=== PATIENT | female | born 1995 | race Caucasian/White ===

== ENCOUNTER 2016-11-14 12:23 | Emergency (ER) | payer OTHER ==
--- NOTE | 2016-11-14 13:09 | ED NURSING NOTES ---
Clinical Report - Nurses [facility] [address] [place] [address] 11/14/2016 12:24 Patient: LESLIE MAGAÑA TRIAGE Triage time 12:41 Nov 14 2016. Acuity: LEVEL 4. --12:45 Radha Marie R.N. 12:41 11/14/16. BP: 115/69. HR: 98. RR: 15. O2 saturation: 100%. Temp: 97.9 F. Pain level now: 03/27. --12:45 Radha Marie R.N. Weight: 56.6 kg stated. Height/Length: 65 inches Per Patient. BMI: 20.8. --12:45 Radha Marie R.N. Medications None. --12:42 Radha Marie R.N. Medication/allergy information source: the patient. --12:45 Radha Marie R.N. Allergies None. --12:42 Radha Marie R.N. History Arrived by private vehicle. Historian: patient. Accompanied by family. Reported as (pt reports upper right dental pain x 3 days). Onset. (3 days ago). 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 PAST MEDICAL HX: Immunizations: up-to-date. Last normal menstrual period- reports "I don't have very many of those". SOCIAL HX: Smoker- current status unknown (cigarette). History of drug use: marijuana. No alcohol use. No infectious disease exposure. ABUSE ASSESSMENT: No report of abuse. SELF HARM ASSESSMENT: A self harm assessment was performed. The patient answered "no" to the question "Do you have thoughts of harming or killing yourself?". FALL RISK ASSESSMENT: Fall risk assessment completed. No fall risk identified. NUTRITIONAL RISK ASSESSMENT: The nutritional risk assessment revealed no deficiencies. FUNCTIONAL ASSESSMENT: Functional assessment: no impairments noted. LEARNING NEEDS ASSESSMENT: The learning needs assessment revealed no barriers. SKIN INTEGRITY ASSESSMENT: Skin integrity risk assessment completed. No skin integrity risk identified. --12:45 Radha Marie R.N. PROBLEMS: Dental Pain. Substance Abuse. Skin Rash. Dysfunctional Uterine Bleeding. Iron deficiency. Immunizations. LNMP - Last Normal Menstrual Period. --12:43 Radha Marie R.N. [Resolved]. Discomfort of [Resolved]. --12:43 Radha Marie R.N. Eczema [RuleOut]. --12:43 Radha Marie R.N. ADDITIONAL SURGERIES: no known surgeries. Interventions ID band on patient. --12:45 Radha Marie R.N. PHYSICAL ASSESSMENT Ambulatory to room. GENERAL / NEURO / PSYCH: Alert. The patient does not appear to be in acute distress. Oriented X 4. RESPIRATORY: Respirations not labored. CVS: Capillary refill less than 2 seconds. SKIN: Skin is warm and dry. Skin rash present. --12:46 Radha Marie R.N. SKIN: Skin rash present- pt has scabs/sores scattered on face, has known dental caries "my insurance doesn't cover many dentists" pt denies drug use "I smoke weed once in a while". --12:48 Radha Marie R.N. NURSING PROGRESS NOTES 12:29. ( this RN went out to call pt to a room for triage and tx, no answer, pts "friend" came up and said she is in the bathroom , I waited 5 minutes and pt remained in the bathroom- speaking with the "friend" through the closed door, pts friend reports "she doesn't like the doctors or going to the hospital" supercharger repair supervisor notified.). --12:36 Radha Marie R.N. Head of bed elevated. Patient identifiers checked. Call light placed in reach. Side rails up x 1. Bed placed in lowest position. Brakes of bed on. Patient ready for evaluation- chart flagged. Patient waiting for evaluation. --12:46 Radha Marie R.N. ( doing dental block). --12:53 Page-Kuchan, Karyol, R.N. DISPOSITION / DISCHARGE No learning barriers present. Discharge instructions provided and reviewed with the patient. Reviewed medication(s) side effects and course information. Prescription(s) given to the patient. Patient verbalized understanding. Written instructions provided in Macedonian. The patient was discharged by the physician. She was discharged home and accompanied by soil science teacher. She left the Emergency Department ambulatory. --13:22 Radha Marie R.N. 13:20 11/14/16. BP: deferred. HR: deferred. RR: deferred. O2 saturation: deferred. Temp: deferred. Pain level now: 0/10. --13:22 Radha Marie R.N. Locked/Released at 11/14/2016 20:28 by Radha Marie R.N.
--- NOTE | 2016-11-14 13:09 | ED CLINICAL REPORT ---
Clinical Report - Physicians/Mid Levels [facility] [address] [place] [address] 11/14/2016 12:24 Patient: LESLIE MAGAÑA Time Seen: 12:30; initial patient contact. Arrived- By private vehicle. Historian- patient. HISTORY OF PRESENT ILLNESS Chief Complaint: DENTAL PAIN. This started about 3 days ago and is still present and worsening. It was gradual in onset and has been constant. Pain described as moderate. The patient has had toothache, jaw pain, nasal congestion and a nasal discharge. No ear pain, swollen jaw or face or facial pain. Similar symptoms previously: Several times. Recent medical care: Not recently seen/assessed. REVIEW OF SYSTEMS No fever or difficulty breathing. She has had a mild skin rash located on the face. All systems otherwise negative, except as recorded above. PAST HISTORY Dental Pain. Substance Abuse. Skin Rash. Dysfunctional Uterine Bleeding. Iron deficiency. SOCIAL HISTORY Current every day smoker. History of drug use: marijuana. No alcohol use. ADDITIONAL NOTES The nursing notes have been reviewed. PHYSICAL EXAM Vital Signs: 11/14/2016 12:41 BP: 115/69. HR: 98. RR: 15. O2 saturation: 100%. Temp: 97.9 F. Pain level now: 10/10. Have been reviewed as normal. Appearance: Alert. No acute distress. Head: Normal external inspection. ENT: Moderate, localized dental decay (upper right first premolar and second premolar). Moderate dental tenderness with gingival tenderness and swelling (upper right first premolar and second premolar). No trismus present. The mucous membranes are not dry. Neck: Trachea midline. No adenopathy. Skin: Mild, excoriated skin rash located on the face. Neuro: Oriented X 3. PROGRESS AND PROCEDURES Dental Nerve Block: Time: 13:17. Per protocol, time-out completed immediately before the procedure. Inferior Alveolar Block. Procedure performed on the right side. Landmarks were identified. Topical anesthetic applied. Total volume of 3 mL 2% Lidocaine and 0.5% Marcaine infiltrated using a 25-gauge needle. No complications encountered. Excellent anesthesia achieved. Disposition: Discharged home in good and improved condition. Condition: good. CLINICAL IMPRESSION Dental caries (extensive decay) Acute maxillary sinusitis INSTRUCTIONS Prescription Medications: Hydrocodone/APAP 5mg / 325mg: take 1 orally as needed for pain. Dispense fifteen (15). No refill. Amoxicillin 500 mg capsules: take 1 orally every 8 hours for 7 days Mupirocin 2% ointment: apply small amount to affected area three times daily until symptoms better. Dispense twenty-two (22) grams. No refills. Flonase nasal spray: 2 sprays to each nostril daily. Dispense one (1) unit. No refills. Substitution is permissible Follow-up: Screening today revealed the patient's blood pressure to be in the normal range. Follow-up with: [facility], , , , , , Follow up in about two days. Call for an appointment. (Electronically signed by King Alcazar Dr. 11/14/2016 13:18)
--- NOTE | 2016-11-14 13:09 | ED CLINICAL REPORT ---
Clinical Report - Physicians/Mid Levels [facility] [address] [place] [address] 11/14/2016 12:24 Patient: LESLIE MAGAÑA Time Seen: 12:30; initial patient contact. Arrived- By private vehicle. Historian- patient. HISTORY OF PRESENT ILLNESS Chief Complaint: DENTAL PAIN. This started about 3 days ago and is still present and worsening. It was gradual in onset and has been constant. Pain described as moderate. The patient has had toothache, jaw pain, nasal congestion and a nasal discharge. No ear pain, swollen jaw or face or facial pain. Similar symptoms previously: Several times. Recent medical care: Not recently seen/assessed. REVIEW OF SYSTEMS No fever or difficulty breathing. She has had a mild skin rash located on the face. All systems otherwise negative, except as recorded above. PAST HISTORY Dental Pain. Substance Abuse. Skin Rash. Dysfunctional Uterine Bleeding. Iron deficiency. SOCIAL HISTORY Current every day smoker. History of drug use: marijuana. No alcohol use. ADDITIONAL NOTES The nursing notes have been reviewed. PHYSICAL EXAM Vital Signs: 11/14/2016 12:41 BP: 115/69. HR: 98. RR: 15. O2 saturation: 100%. Temp: 97.9 F. Pain level now: 10/10. Have been reviewed as normal. Appearance: Alert. No acute distress. Head: Normal external inspection. ENT: Moderate, localized dental decay (upper right first premolar and second premolar). Moderate dental tenderness with gingival tenderness and swelling (upper right first premolar and second premolar). No trismus present. The mucous membranes are not dry. Neck: Trachea midline. No adenopathy. Skin: Mild, excoriated skin rash located on the face. Neuro: Oriented X 3. PROGRESS AND PROCEDURES Dental Nerve Block: Time: 13:17. Per protocol, time-out completed immediately before the procedure. Inferior Alveolar Block. Procedure performed on the right side. Landmarks were identified. Topical anesthetic applied. Total volume of 3 mL 2% Lidocaine and 0.5% Marcaine infiltrated using a 25-gauge needle. No complications encountered. Excellent anesthesia achieved. Disposition: Discharged home in good and improved condition. Condition: good. CLINICAL IMPRESSION Dental caries (extensive decay) Acute maxillary sinusitis INSTRUCTIONS Prescription Medications: Hydrocodone/APAP 5mg / 325mg: take 1 orally as needed for pain. Dispense fifteen (15). No refill. Amoxicillin 500 mg capsules: take 1 orally every 8 hours for 7 days Mupirocin 2% ointment: apply small amount to affected area three times daily until symptoms better. Dispense twenty-two (22) grams. No refills. Flonase nasal spray: 2 sprays to each nostril daily. Dispense one (1) unit. No refills. Substitution is permissible Follow-up: Screening today revealed the patient's blood pressure to be in the normal range. Follow-up with: [facility], , , , , , Follow up in about two days. Call for an appointment. (Electronically signed by King Alcazar Dr. 11/14/2016 13:18)
--- NOTE | 2016-11-14 13:09 | ED NURSING NOTES ---
Clinical Report - Nurses [facility] [address] [place] [address] 11/14/2016 12:24 Patient: LESLIE MAGAÑA TRIAGE Triage time 12:41 Nov 14 2016. Acuity: LEVEL 4. --12:45 Radha Marie R.N. 12:41 11/14/16. BP: 115/69. HR: 98. RR: 15. O2 saturation: 100%. Temp: 97.9 F. Pain level now: 03/27. --12:45 Radha Marie R.N. Weight: 56.6 kg stated. Height/Length: 65 inches Per Patient. BMI: 20.8. --12:45 Radha Marie R.N. Medications None. --12:42 Radha Marie R.N. Medication/allergy information source: the patient. --12:45 Radha Marie R.N. Allergies None. --12:42 Radha Marie R.N. History Arrived by private vehicle. Historian: patient. Accompanied by family. Reported as (pt reports upper right dental pain x 3 days). Onset. (3 days ago). 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 PAST MEDICAL HX: Immunizations: up-to-date. Last normal menstrual period- reports "I don't have very many of those". SOCIAL HX: Smoker- current status unknown (cigarette). History of drug use: marijuana. No alcohol use. No infectious disease exposure. ABUSE ASSESSMENT: No report of abuse. SELF HARM ASSESSMENT: A self harm assessment was performed. The patient answered "no" to the question "Do you have thoughts of harming or killing yourself?". FALL RISK ASSESSMENT: Fall risk assessment completed. No fall risk identified. NUTRITIONAL RISK ASSESSMENT: The nutritional risk assessment revealed no deficiencies. FUNCTIONAL ASSESSMENT: Functional assessment: no impairments noted. LEARNING NEEDS ASSESSMENT: The learning needs assessment revealed no barriers. SKIN INTEGRITY ASSESSMENT: Skin integrity risk assessment completed. No skin integrity risk identified. --12:45 Radha Marie R.N. PROBLEMS: Dental Pain. Substance Abuse. Skin Rash. Dysfunctional Uterine Bleeding. Iron deficiency. Immunizations. LNMP - Last Normal Menstrual Period. --12:43 Radha Marie R.N. [Resolved]. Discomfort of [Resolved]. --12:43 Radha Marie R.N. Eczema [RuleOut]. --12:43 Radha Marie R.N. ADDITIONAL SURGERIES: no known surgeries. Interventions ID band on patient. --12:45 Radha Marie R.N. PHYSICAL ASSESSMENT Ambulatory to room. GENERAL / NEURO / PSYCH: Alert. The patient does not appear to be in acute distress. Oriented X 4. RESPIRATORY: Respirations not labored. CVS: Capillary refill less than 2 seconds. SKIN: Skin is warm and dry. Skin rash present. --12:46 Radha Marie R.N. SKIN: Skin rash present- pt has scabs/sores scattered on face, has known dental caries "my insurance doesn't cover many dentists" pt denies drug use "I smoke weed once in a while". --12:48 Radha Marie R.N. NURSING PROGRESS NOTES 12:29. ( this RN went out to call pt to a room for triage and tx, no answer, pts "friend" came up and said she is in the bathroom , I waited 5 minutes and pt remained in the bathroom- speaking with the "friend" through the closed door, pts friend reports "she doesn't like the doctors or going to the hospital" monorail charger operator notified.). --12:36 Radha Marie R.N. Head of bed elevated. Patient identifiers checked. Call light placed in reach. Side rails up x 1. Bed placed in lowest position. Brakes of bed on. Patient ready for evaluation- chart flagged. Patient waiting for evaluation. --12:46 Radha Marie R.N. ( doing dental block). --12:53 Page-Kuchan, Karyol, R.N. DISPOSITION / DISCHARGE No learning barriers present. Discharge instructions provided and reviewed with the patient. Reviewed medication(s) side effects and course information. Prescription(s) given to the patient. Patient verbalized understanding. Written instructions provided in Chinese. The patient was discharged by the physician. She was discharged home and accompanied by flooring installer. She left the Emergency Department ambulatory. --13:22 Radha Marie R.N. 13:20 11/14/16. BP: deferred. HR: deferred. RR: deferred. O2 saturation: deferred. Temp: deferred. Pain level now: 0/10. --13:22 Radha Marie R.N. Locked/Released at 11/14/2016 20:28 by Radha Marie R.N.
--- NOTE | 2016-11-14 20:28 | ED DISCHARGE INSTRUCTIONS ---
Patient: LESLIE MAGAÑA General Instructions [facility] VisitID: [id number] [place] [address] 21y, F Registration Date/Time: 11/14/2016 Dental caries (extensive decay) Acute maxillary sinusitis INSTRUCTIONS Prescription Medications: Hydrocodone/APAP 5mg / 325mg: take 1 orally as needed for pain. Dispense fifteen (15). No refill. Amoxicillin 500 mg capsules: take 1 orally every 8 hours for 7 days Mupirocin 2% ointment: apply small amount to affected area three times daily until symptoms better. Dispense twenty-two (22) grams. No refills. Flonase nasal spray: 2 sprays to each nostril daily. Dispense one (1) unit. No refills. Substitution is permissible Follow-up: Screening today revealed the patient's blood pressure to be in the normal range. Follow-up with: [facility], , , , , , Follow up in about two days. Call for an appointment. ADDITIONAL INFORMATION Sinusitis [No Abx Tx] The sinuses are air-filled spaces within the bones of the face. They connect to the inside of the nose. Sinusitis is an inflammation of the tissue lining the sinus cavity. Sinus inflammation can occur during a cold or hay-fever (allergies to pollens and other particles in the air) and cause symptoms of sinus congestion and fullness and perhaps a low-grade fever. This does not require antibiotic treatment. Home Care: Drink plenty of water, hot tea, and other liquids to stay well hydrated. This thins the mucus and promotes sinus drainage. Apply heat to the painful areas of the face. Use a towel soaked in hot water. Or, divisional merchandising manager the shower and direct the hot spray onto your face. This is a good way to inhale warm water vapor and get heat on your face at the same time. (Cover your mouth and nose with your hands so you can still breathe as you do this.) Use a vaporizer with products such as Vicks VapoRub (contains menthol) at night. Suck on peppermint, menthol or eucalyptus hard candies during the day. An expectorant containing guaifenesin (such as Robitussin), helps to thin the mucus and promote drainage from the sinuses. Hbwd-scq-zaumflc decongestants may be used unless a similar medicine was prescribed. Nasal sprays work the fastest. Use one that contains phenylephrine (Gerardo-synephrine, Sinex and others) or oxymetazoline (Afrin). First blow the nose gently to remove mucus, then apply the drops. Do not use these medicines more often than directed on the label or for more than three days or symptoms may worsen. You may also use tablets containing pseudoephedrine (Sudafed). Many sinus remedies combine ingredients, which may increase side effects. Read the labels or ask the pharmacist for help. NOTE: Persons with high blood pressure should not use decongestants. They can raise blood pressure. Antihistamines are useful if allergies are a cause of your sinusitis. The mildest one is chlorpheniramine (available without a prescription). The dose for adults is 8-12mg three times a day. [NOTE: Do not use chlorpheniramine if you have glaucoma or if you are a man with trouble urinating due to an enlarged prostate.] Claritin (loratidine) is an antihistamine that causes less drowsiness and is a good alternative for daytime use. When allergies are the cause for sinusitis, a saline nasal rinse may give relief. Saline nasal rinse reduces swelling and clears excess mucus. This allows sinuses to drain. Pre-packaged kits are available at most drug stores. These contain pre-mixed salt packets and an irrigation device. You may use acetaminophen (Tylenol) or ibuprofen (Motrin, Advil) to control pain, unless another pain medicine was prescribed. [ NOTE: If you have chronic liver or kidney disease or ever had a stomach ulcer, talk with your doctor before using these medicines.] (Aspirin should never be used in anyone under 18 years of age who is ill with a fever. It may cause severe liver damage.) Follow Up with your doctor or this facility in one week or as instructed by our staff if not improving. Get Prompt Medical Attention if any of the following occur: Green or yellow drainage from the nose or into the back of the throat (post-nasal drip) Worsening sinus pain or headache Stiff neck Unusual drowsiness, confusion or not acting like your normal self Swelling of the forehead or eyelids Vision problems including blurred or double vision Fever of 100.4F (38C) or higher, or as directed by your healthcare provider Seizure Dental Cavity A dental cavity is a pit or crater in the enamel surface of the tooth. This exposes the sensitive inner layer of the tooth and causes pain. If untreated, the cavity will get bigger and may cause an infection or abscess in the root of the tooth. An infection in the tooth is a much more serious problem and may require a root canal or removal of the entire tooth. The tooth pain may be made worse by drinking hot or cold fluids. It may spread from the tooth to the ear or jaw on the same side. Home Care: Avoid hot and cold foods, and liquids since your tooth may be sensitive to temperature changes. If your tooth is chipped or cracked, or if there is a large open cavity, apply OIL OF CLOVES (available wkxa-zlw-biflchc in drug stores) directly to the tooth to reduce pain. Some pharmacies carry an ofvx-omy-opjacpd "toothache kit." This contains oil of cloves and a paste, which can be applied over the exposed tooth to decrease sensitivity. An ice pack on your jaw over the sore area may help to reduce pain. You may use acetaminophen (Tylenol) or ibuprofen (Motrin, Advil) to control pain, unless another pain medicine was prescribed. [ NOTE: If you have liver disease or ever had a stomach ulcer, talk with your doctor before using these medicines.] If you have signs of an infection, an antibiotic will be given. Take it as directed. Follow-Up with your dentist as directed. Although your pain may go away with the treatment given, only a dentist can fully evaluate and treat this problem to prevent further tooth damage. Get Prompt Medical Attention if any of the following occur: Redness or swelling of the face Pain worsens or spreads to the neck Fever over 100.5 F (38C) Unusual drowsiness; headache or stiff neck; weakness or fainting Pus drains from the tooth or gum Difficulty swallowing or breathing Dental Pain A crack or cavity in the tooth, which exposes the sensitive inner area of the tooth can cause tooth pain. An infection in the gum or the root of the tooth can cause pain and swelling. The pain is often made worse by drinking hot or cold fluids, or biting on hard foods. Pain may spread from the tooth to the ear or jaw on the same side. Home Care: Avoid hot and cold foods and liquids since your tooth may be sensitive to temperature changes. If your tooth is chipped or cracked, or if there is a large open cavity, apply OIL OF CLOVES (available zayo-kxm-znphgud in drug stores) directly to the tooth to reduce pain. Some pharmacies carry an qptm-kvq-plvulni "toothache kit." This contains a paste, which can be applied over the exposed tooth to decrease sensitivity. A cold pack on your jaw over the sore area may help reduce pain. You may use acetaminophen (Tylenol) or ibuprofen (Motrin, Advil) to control pain, unless another medicine was prescribed. [ NOTE: If you have chronic liver or kidney disease or ever had a stomach ulcer or GI bleeding, talk with your doctor before using these medicines.] If you have signs of an infection, an antibiotic will be given. Take it as directed. Follow-Up as directed with a dentist. Your pain may go away with the treatment given. However, only a dentist can fully evaluate and treat the cause and prevent the pain from coming back again. TOOTHACHE IS A SIGN OF DISEASE IN YOUR TOOTH AND SHOULD BE EXAMINED AND TREATED BY A DENTIST. Get Prompt Medical Attention if any of the following occur: Your face becomes swollen or red Pain worsens or spreads to the neck Fever over 100.4 F (38.0 C) Unusual drowsiness; headache or stiff neck; weakness or fainting Pus drains from the tooth Difficulty swallowing or breathing Hydrocodone Bitartrate, Acetaminophen Oral tablet What is this medicine? ACETAMINOPHEN; HYDROCODONE (a set a KRYSTYNA princess fen; gege droe KOE done) is a pain reliever. It is used to treat mild to moderate pain. How should I use this medicine? Take this medicine by mouth. Swallow it with a full glass of water. Follow the directions on the prescription label. If the medicine upsets your stomach, take the medicine with food or milk. Do not take more than you are told to take. Talk to your tailor women's garment alteration regarding the use of this medicine in children. This medicine is not approved for use in children. What side effects may I notice from receiving this medicine? Side effects that you should report to your doctor or health direct care professional as soon as possible: allergic reactions like skin rash, itching or hives, swelling of the face, lips, or tongue breathing problems confusion feeling faint or lightheaded, falls stomach pain yellowing of the eyes or skin Side effects that usually do not require medical attention (report to your doctor or health direct care professional if they continue or are bothersome): nausea, vomiting stomach upset What may interact with this medicine? alcohol antihistamines isoniazid medicines for depression, anxiety, or psychotic disturbances medicines for sleep muscle relaxants naltrexone narcotic medicines (opiates) for pain phenobarbital ritonavir tramadol What if I miss a dose? If you miss a dose, take it as soon as you can. If it is almost time for your next dose, take only that dose. Do not take double or extra doses. Where should I keep my medicine? Keep out of the reach of children. This medicine can be abused. Keep your medicine in a safe place to protect it from theft. Do not share this medicine with anyone. Selling or giving away this medicine is dangerous and against the law. Store at room temperature between 15 and 30 degrees C (59 and 86 degrees F). Protect from light. Keep container tightly closed. Throw away any unused medicine after the expiration date. Discard unused medicine and used packaging carefully. Pets and children can be harmed if they find used or lost packages. What should I tell my health care provider before I take this medicine? They need to know if you have any of these conditions: brain tumor Crohn's disease, inflammatory bowel disease, or ulcerative colitis drink more than 3 alcohol-containing drinks per day drug abuse or addiction head injury heart or circulation problems kidney disease or problems going to the bathroom liver disease lung disease, asthma, or breathing problems an unusual or allergic reaction to acetaminophen, hydrocodone, other opioid analgesics, other medicines, foods, dyes, or preservatives or trying to get breast-feeding What should I watch for while using this medicine? Tell your doctor or health direct care professional if your pain does not go away, if it gets worse, or if you have new or a different type of pain. You may develop tolerance to the medicine. Tolerance means that you will need a higher dose of the medicine for pain relief. Tolerance is normal and is expected if you take the medicine for a long time. Do not suddenly stop taking your medicine because you may develop a severe reaction. Your body becomes used to the medicine. This does NOT mean you are addicted. Addiction is a behavior related to getting and using a drug for a non-medical reason. If you have pain, you have a medical reason to take pain medicine. Your doctor will tell you how much medicine to take. If your doctor wants you to stop the medicine, the dose will be slowly lowered over time to avoid any side effects. You may get drowsy or dizzy when you first start taking the medicine or change doses. Do not drive, use machinery, or do anything that may be dangerous until you know how the medicine affects you. Stand or sit up slowly. There are different types of narcotic medicines (opiates) for pain. If you take more than one type at the same time, you may have more side effects. Give your health care provider a list of all medicines you use. Your doctor will tell you how much medicine to take. Do not take more medicine than directed. Call emergency for help if you have problems breathing. The medicine will cause constipation. Try to have a bowel movement at least every 2 to 3 days. If you do not have a bowel movement for 3 days, call your doctor or health direct care professional. Too much acetaminophen can be very dangerous. Do not take Tylenol (acetaminophen) or medicines that contain acetaminophen with this medicine. Many non-prescription medicines contain acetaminophen. Always read the labels carefully. Amoxicillin Trihydrate Oral tablet What is this medicine? AMOXICILLIN (a mox i WILIAM in) is a penicillin antibiotic. It is used to treat certain kinds of bacterial infections. It will not work for colds, flu, or other viral infections. How should I use this medicine? Take this medicine by mouth with a glass of water. Follow the directions on your prescription label. You may take this medicine with food or on an empty stomach. Take your medicine at regular intervals. Do not take your medicine more often than directed. Take all of your medicine as directed even if you think your are better. Do not skip doses or stop your medicine early. Talk to your tailor women's garment alteration regarding the use of this medicine in children. While this drug may be prescribed for selected conditions, precautions do apply. What side effects may I notice from receiving this medicine? Side effects that you should report to your doctor or health direct care professional as soon as possible: allergic reactions like skin rash, itching or hives, swelling of the face, lips, or tongue breathing problems dark urine redness, blistering, peeling or loosening of the skin, including inside the mouth seizures severe or watery diarrhea trouble passing urine or change in the amount of urine unusual bleeding or bruising unusually weak or tired yellowing of the eyes or skin Side effects that usually do not require medical attention (report to your doctor or health direct care professional if they continue or are bothersome): dizziness headache stomach upset trouble sleeping What may interact with this medicine? amiloride control pills chloramphenicol macrolides probenecid sulfonamides tetracyclines What if I miss a dose? If you miss a dose, take it as soon as you can. If it is almost time for your next dose, take only that dose. Do not take double or extra doses. Where should I keep my medicine? Keep out of the reach of children. Store between 68 and 77 degrees F (20 and 25 degrees C). Keep bottle closed tightly. Throw away any unused medicine after the expiration date. What should I tell my health care provider before I take this medicine? They need to know if you have any of these conditions: asthma kidney disease an unusual or allergic reaction to amoxicillin, other penicillins, cephalosporin antibiotics, other medicines, foods, dyes, or preservatives or trying to get breast-feeding What should I watch for while using this medicine? Tell your doctor or health direct care professional if your symptoms do not improve in 2 or 3 days. Take all of the doses of your medicine as directed. Do not skip doses or stop your medicine early. If you are diabetic, you may get a false positive result for sugar in your urine with certain brands of urine tests. Check with your doctor. Do not treat diarrhea with xonr-urp-pqkvouf products. Contact your doctor if you have diarrhea that lasts more than 2 days or if the diarrhea is severe and watery. Mupirocin Topical ointment What is this medicine? MUPIROCIN (myoo PEER oh sin) is an antibiotic. It is used on the skin to treat skin infections. How should I use this medicine? This medicine is for external use only. Follow the directions on the prescription label. Wash your hands before and after use. Before applying, wash the affected area with mild soap and water and pat dry. Apply a small amount to the affected area and rub gently. You can cover the area with a gauze dressing. Do not get this medicine in your eyes. If you do, rinse out with plenty of cool tap water. Do not use your medicine more often than directed. Finish the full course of medicine prescribed by your doctor or health direct care professional even if you think your condition is better. Do not use over large areas of burnt skin. Talk to your tailor women's garment alteration regarding the use of this medicine in children. Special care may be needed. What side effects may I notice from receiving this medicine? Side effects that you should report to your doctor or health direct care professional as soon as possible: skin rash, redness, continued swelling, burning, itching, stinging, or pain Side effects that usually do not require medical attention (report to your doctor or health direct care professional if they continue or are bothersome): dry skin, itching What may interact with this medicine? Interactions are not expected. Do not use any other skin products on the affected area without telling your doctor or health direct care professional. What if I miss a dose? If you miss a dose, take it as soon as you can. If it is almost time for your next dose, take only that dose. Do not take double or extra doses. Where should I keep my medicine? Keep out of the reach of children. Store at room temperature between 20 and 25 degrees C (68 and 77 degrees F). Throw away any unused medicine after the expiration date. What should I tell my health care provider before I take this medicine? They need to know if you have any of these conditions: an unusual or allergic reaction to mupirocin, polyethylene glycol (PEG), or other topical antibiotic medicine or trying to get breast-feeding What should I watch for while using this medicine? Tell your doctor or health direct care professional if your skin condition does not begin to improve within 3 to 5 days. Fluticasone Propionate Nasal spray, solution What is this medicine? FLUTICASONE (floo TIK a sone) is a corticosteroid. It helps decrease inflammation in your nose. This medicine is used to treat the symptoms of allergies like sneezing, itching, and runny or stuffy nose. How should I use this medicine? This medicine is for use in the nose. Follow the directions on your prescription label. This medicine works best if used regularly. Do not use more often than directed. Make sure that you are using your nasal spray correctly. Ask you doctor or health care provider if you have any questions. Talk to your tailor women's garment alteration regarding the use of this medicine in children. While this drug may be prescribed for children as young as 4 years old for selected conditions, precautions do apply. What side effects may I notice from receiving this medicine? Side effects that you should report to your doctor or health direct care professional as soon as possible: allergic reactions like skin rash, itching or hives, swelling of the face, lips, or tongue changes in vision flu-like symptoms white patches or sores in the mouth or nose Side effects that usually do not require medical attention (report to your doctor or health direct care professional if they continue or are bothersome): burning or irritation inside the nose or throat cough headache nosebleed unusual taste or smell What may interact with this medicine? ketoconazole metyrapone some medicines for HIV vaccines What if I miss a dose? If you miss a dose, use it as soon as you remember. If it is almost time for your next dose, use only that dose and continue with your regular schedule. Do not use double or extra doses. Where should I keep my medicine? Keep out of the reach of children. Store at room temperature between 15 and 30 degrees C (59 and 86 degrees F). Throw away any unused medicine after the expiration date. What should I tell my health care provider before I take this medicine? They need to know if you have any of these conditions: infection, like tuberculosis, herpes, or fungal infection recent surgery on nose or sinuses taking corticosteroid by mouth an unusual or allergic reaction to fluticasone, steroids, other medicines, foods, dyes, or preservatives or trying to get breast-feeding What should I watch for while using this medicine? Visit your doctor or health direct care professional for regular checks on your progress. Some symptoms may improve within 12 hours after starting use. Check with your doctor or health direct care professional if there is no improvement in your condition after 3 weeks of use. Do not come in contact with people who have chickenpox or the measles while you are taking this medicine. If you do, call your doctor right away. You have been given the following additional information: Sinusitis, No Abx Dental Cavity Dental Pain Hydrocodone Bitartrate, Acetaminophen Oral tablet Amoxicillin Trihydrate Oral tablet Mupirocin Topical ointment Fluticasone Propionate Nasal spray, solution (Electronically signed by King Alcazar Dr. 11/14/2016 13:18)
--- NOTE | 2016-11-14 20:28 | ED MAR SUMMARY ---
..... Medication Administration Record [facility] [address] [place], [place] [id number] Patient: LESLIE MAGAÑA Visit ID: [id number] 21y, F Weight: 56.6 kg Height/Length: 65 in BMI: 20.8 ALLERGIES: None
--- NOTE | 2016-11-14 20:28 | ED MAR SUMMARY ---
..... Medication Administration Record [facility] [address] [place], [place] [id number] Patient: LESLIE MAGAÑA Visit ID: [id number] 21y, F Weight: 56.6 kg Height/Length: 65 in BMI: 20.8 ALLERGIES: None
--- NOTE | 2016-11-14 20:28 | ED MED RECONCILIATION SUMMARY ---
Patient: SANDRA MAGAÑAHARRISON Judson Medication Reconciliation Report [facility] VisitID: [id number] [place] [address] 21y, F Registration Date/Time: 11/14/2016 Weight: 56.6 kg Height/Length: 65 in. BMI: 20.8 ALLERGIES: None The patient's Home Medications are listed below: NONE. The source(s) of the original Home Medication information: patient The following Medications were given to the patient in the Emergency Department: None. The following Medications were prescribed to the patient: Hydrocodone/APAP 5mg / 325mg: take 1 orally as needed for pain. Dispense fifteen (15). No refill. -- King Alcazar Dr. Amoxicillin 500 mg capsules: take 1 orally every 8 hours for 7 days -- King Alcazar Dr. Mupirocin 2% ointment: apply small amount to affected area three times daily until symptoms better. Dispense twenty-two (22) grams. No refills. -- King Alcazar Dr. Flonasslava nasal spray: 2 sprays to each nostril daily. Dispense one (1) unit. No refills. Substitution is permissible -- King Alcazar Dr.
--- NOTE | 2016-11-14 20:28 | ED DISCHARGE INSTRUCTIONS ---
Patient: LESLIE MAGAÑA General Instructions [facility] VisitID: [id number] [place] [address] 21y, F Registration Date/Time: 11/14/2016 Dental caries (extensive decay) Acute maxillary sinusitis INSTRUCTIONS Prescription Medications: Hydrocodone/APAP 5mg / 325mg: take 1 orally as needed for pain. Dispense fifteen (15). No refill. Amoxicillin 500 mg capsules: take 1 orally every 8 hours for 7 days Mupirocin 2% ointment: apply small amount to affected area three times daily until symptoms better. Dispense twenty-two (22) grams. No refills. Flonase nasal spray: 2 sprays to each nostril daily. Dispense one (1) unit. No refills. Substitution is permissible Follow-up: Screening today revealed the patient's blood pressure to be in the normal range. Follow-up with: [facility], , , , , , Follow up in about two days. Call for an appointment. ADDITIONAL INFORMATION Sinusitis [No Abx Tx] The sinuses are air-filled spaces within the bones of the face. They connect to the inside of the nose. Sinusitis is an inflammation of the tissue lining the sinus cavity. Sinus inflammation can occur during a cold or hay-fever (allergies to pollens and other particles in the air) and cause symptoms of sinus congestion and fullness and perhaps a low-grade fever. This does not require antibiotic treatment. Home Care: Drink plenty of water, hot tea, and other liquids to stay well hydrated. This thins the mucus and promotes sinus drainage. Apply heat to the painful areas of the face. Use a towel soaked in hot water. Or, therapy site coordinator the shower and direct the hot spray onto your face. This is a good way to inhale warm water vapor and get heat on your face at the same time. (Cover your mouth and nose with your hands so you can still breathe as you do this.) Use a vaporizer with products such as Vicks VapoRub (contains menthol) at night. Suck on peppermint, menthol or eucalyptus hard candies during the day. An expectorant containing guaifenesin (such as Robitussin), helps to thin the mucus and promote drainage from the sinuses. Yena-fru-xaznbsi decongestants may be used unless a similar medicine was prescribed. Nasal sprays work the fastest. Use one that contains phenylephrine (Gerardo-synephrine, Sinex and others) or oxymetazoline (Afrin). First blow the nose gently to remove mucus, then apply the drops. Do not use these medicines more often than directed on the label or for more than three days or symptoms may worsen. You may also use tablets containing pseudoephedrine (Sudafed). Many sinus remedies combine ingredients, which may increase side effects. Read the labels or ask the pharmacist for help. NOTE: Persons with high blood pressure should not use decongestants. They can raise blood pressure. Antihistamines are useful if allergies are a cause of your sinusitis. The mildest one is chlorpheniramine (available without a prescription). The dose for adults is 8-12mg three times a day. [NOTE: Do not use chlorpheniramine if you have glaucoma or if you are a man with trouble urinating due to an enlarged prostate.] Claritin (loratidine) is an antihistamine that causes less drowsiness and is a good alternative for daytime use. When allergies are the cause for sinusitis, a saline nasal rinse may give relief. Saline nasal rinse reduces swelling and clears excess mucus. This allows sinuses to drain. Pre-packaged kits are available at most drug stores. These contain pre-mixed salt packets and an irrigation device. You may use acetaminophen (Tylenol) or ibuprofen (Motrin, Advil) to control pain, unless another pain medicine was prescribed. [ NOTE: If you have chronic liver or kidney disease or ever had a stomach ulcer, talk with your doctor before using these medicines.] (Aspirin should never be used in anyone under 18 years of age who is ill with a fever. It may cause severe liver damage.) Follow Up with your doctor or this facility in one week or as instructed by our staff if not improving. Get Prompt Medical Attention if any of the following occur: Green or yellow drainage from the nose or into the back of the throat (post-nasal drip) Worsening sinus pain or headache Stiff neck Unusual drowsiness, confusion or not acting like your normal self Swelling of the forehead or eyelids Vision problems including blurred or double vision Fever of 100.4F (38C) or higher, or as directed by your healthcare provider Seizure Dental Cavity A dental cavity is a pit or crater in the enamel surface of the tooth. This exposes the sensitive inner layer of the tooth and causes pain. If untreated, the cavity will get bigger and may cause an infection or abscess in the root of the tooth. An infection in the tooth is a much more serious problem and may require a root canal or removal of the entire tooth. The tooth pain may be made worse by drinking hot or cold fluids. It may spread from the tooth to the ear or jaw on the same side. Home Care: Avoid hot and cold foods, and liquids since your tooth may be sensitive to temperature changes. If your tooth is chipped or cracked, or if there is a large open cavity, apply OIL OF CLOVES (available aniq-byh-cdvrded in drug stores) directly to the tooth to reduce pain. Some pharmacies carry an dlxq-rai-emtijim "toothache kit." This contains oil of cloves and a paste, which can be applied over the exposed tooth to decrease sensitivity. An ice pack on your jaw over the sore area may help to reduce pain. You may use acetaminophen (Tylenol) or ibuprofen (Motrin, Advil) to control pain, unless another pain medicine was prescribed. [ NOTE: If you have liver disease or ever had a stomach ulcer, talk with your doctor before using these medicines.] If you have signs of an infection, an antibiotic will be given. Take it as directed. Follow-Up with your dentist as directed. Although your pain may go away with the treatment given, only a dentist can fully evaluate and treat this problem to prevent further tooth damage. Get Prompt Medical Attention if any of the following occur: Redness or swelling of the face Pain worsens or spreads to the neck Fever over 100.5 F (38C) Unusual drowsiness; headache or stiff neck; weakness or fainting Pus drains from the tooth or gum Difficulty swallowing or breathing Dental Pain A crack or cavity in the tooth, which exposes the sensitive inner area of the tooth can cause tooth pain. An infection in the gum or the root of the tooth can cause pain and swelling. The pain is often made worse by drinking hot or cold fluids, or biting on hard foods. Pain may spread from the tooth to the ear or jaw on the same side. Home Care: Avoid hot and cold foods and liquids since your tooth may be sensitive to temperature changes. If your tooth is chipped or cracked, or if there is a large open cavity, apply OIL OF CLOVES (available oirb-hqo-coduyrt in drug stores) directly to the tooth to reduce pain. Some pharmacies carry an bxzc-wbd-fihmvxq "toothache kit." This contains a paste, which can be applied over the exposed tooth to decrease sensitivity. A cold pack on your jaw over the sore area may help reduce pain. You may use acetaminophen (Tylenol) or ibuprofen (Motrin, Advil) to control pain, unless another medicine was prescribed. [ NOTE: If you have chronic liver or kidney disease or ever had a stomach ulcer or GI bleeding, talk with your doctor before using these medicines.] If you have signs of an infection, an antibiotic will be given. Take it as directed. Follow-Up as directed with a dentist. Your pain may go away with the treatment given. However, only a dentist can fully evaluate and treat the cause and prevent the pain from coming back again. TOOTHACHE IS A SIGN OF DISEASE IN YOUR TOOTH AND SHOULD BE EXAMINED AND TREATED BY A DENTIST. Get Prompt Medical Attention if any of the following occur: Your face becomes swollen or red Pain worsens or spreads to the neck Fever over 100.4 F (38.0 C) Unusual drowsiness; headache or stiff neck; weakness or fainting Pus drains from the tooth Difficulty swallowing or breathing Hydrocodone Bitartrate, Acetaminophen Oral tablet What is this medicine? ACETAMINOPHEN; HYDROCODONE (a set a KRYSTYNA princess fen; gege droe KOE done) is a pain reliever. It is used to treat mild to moderate pain. How should I use this medicine? Take this medicine by mouth. Swallow it with a full glass of water. Follow the directions on the prescription label. If the medicine upsets your stomach, take the medicine with food or milk. Do not take more than you are told to take. Talk to your mortgage coordinator regarding the use of this medicine in children. This medicine is not approved for use in children. What side effects may I notice from receiving this medicine? Side effects that you should report to your doctor or health personal care service provider as soon as possible: allergic reactions like skin rash, itching or hives, swelling of the face, lips, or tongue breathing problems confusion feeling faint or lightheaded, falls stomach pain yellowing of the eyes or skin Side effects that usually do not require medical attention (report to your doctor or health personal care service provider if they continue or are bothersome): nausea, vomiting stomach upset What may interact with this medicine? alcohol antihistamines isoniazid medicines for depression, anxiety, or psychotic disturbances medicines for sleep muscle relaxants naltrexone narcotic medicines (opiates) for pain phenobarbital ritonavir tramadol What if I miss a dose? If you miss a dose, take it as soon as you can. If it is almost time for your next dose, take only that dose. Do not take double or extra doses. Where should I keep my medicine? Keep out of the reach of children. This medicine can be abused. Keep your medicine in a safe place to protect it from theft. Do not share this medicine with anyone. Selling or giving away this medicine is dangerous and against the law. Store at room temperature between 15 and 30 degrees C (59 and 86 degrees F). Protect from light. Keep container tightly closed. Throw away any unused medicine after the expiration date. Discard unused medicine and used packaging carefully. Pets and children can be harmed if they find used or lost packages. What should I tell my health care provider before I take this medicine? They need to know if you have any of these conditions: brain tumor Crohn's disease, inflammatory bowel disease, or ulcerative colitis drink more than 3 alcohol-containing drinks per day drug abuse or addiction head injury heart or circulation problems kidney disease or problems going to the bathroom liver disease lung disease, asthma, or breathing problems an unusual or allergic reaction to acetaminophen, hydrocodone, other opioid analgesics, other medicines, foods, dyes, or preservatives or trying to get breast-feeding What should I watch for while using this medicine? Tell your doctor or health personal care service provider if your pain does not go away, if it gets worse, or if you have new or a different type of pain. You may develop tolerance to the medicine. Tolerance means that you will need a higher dose of the medicine for pain relief. Tolerance is normal and is expected if you take the medicine for a long time. Do not suddenly stop taking your medicine because you may develop a severe reaction. Your body becomes used to the medicine. This does NOT mean you are addicted. Addiction is a behavior related to getting and using a drug for a non-medical reason. If you have pain, you have a medical reason to take pain medicine. Your doctor will tell you how much medicine to take. If your doctor wants you to stop the medicine, the dose will be slowly lowered over time to avoid any side effects. You may get drowsy or dizzy when you first start taking the medicine or change doses. Do not drive, use machinery, or do anything that may be dangerous until you know how the medicine affects you. Stand or sit up slowly. There are different types of narcotic medicines (opiates) for pain. If you take more than one type at the same time, you may have more side effects. Give your health care provider a list of all medicines you use. Your doctor will tell you how much medicine to take. Do not take more medicine than directed. Call emergency for help if you have problems breathing. The medicine will cause constipation. Try to have a bowel movement at least every 2 to 3 days. If you do not have a bowel movement for 3 days, call your doctor or health personal care service provider. Too much acetaminophen can be very dangerous. Do not take Tylenol (acetaminophen) or medicines that contain acetaminophen with this medicine. Many non-prescription medicines contain acetaminophen. Always read the labels carefully. Amoxicillin Trihydrate Oral tablet What is this medicine? AMOXICILLIN (a mox i WILIAM in) is a penicillin antibiotic. It is used to treat certain kinds of bacterial infections. It will not work for colds, flu, or other viral infections. How should I use this medicine? Take this medicine by mouth with a glass of water. Follow the directions on your prescription label. You may take this medicine with food or on an empty stomach. Take your medicine at regular intervals. Do not take your medicine more often than directed. Take all of your medicine as directed even if you think your are better. Do not skip doses or stop your medicine early. Talk to your mortgage coordinator regarding the use of this medicine in children. While this drug may be prescribed for selected conditions, precautions do apply. What side effects may I notice from receiving this medicine? Side effects that you should report to your doctor or health personal care service provider as soon as possible: allergic reactions like skin rash, itching or hives, swelling of the face, lips, or tongue breathing problems dark urine redness, blistering, peeling or loosening of the skin, including inside the mouth seizures severe or watery diarrhea trouble passing urine or change in the amount of urine unusual bleeding or bruising unusually weak or tired yellowing of the eyes or skin Side effects that usually do not require medical attention (report to your doctor or health personal care service provider if they continue or are bothersome): dizziness headache stomach upset trouble sleeping What may interact with this medicine? amiloride control pills chloramphenicol macrolides probenecid sulfonamides tetracyclines What if I miss a dose? If you miss a dose, take it as soon as you can. If it is almost time for your next dose, take only that dose. Do not take double or extra doses. Where should I keep my medicine? Keep out of the reach of children. Store between 68 and 77 degrees F (20 and 25 degrees C). Keep bottle closed tightly. Throw away any unused medicine after the expiration date. What should I tell my health care provider before I take this medicine? They need to know if you have any of these conditions: asthma kidney disease an unusual or allergic reaction to amoxicillin, other penicillins, cephalosporin antibiotics, other medicines, foods, dyes, or preservatives or trying to get breast-feeding What should I watch for while using this medicine? Tell your doctor or health personal care service provider if your symptoms do not improve in 2 or 3 days. Take all of the doses of your medicine as directed. Do not skip doses or stop your medicine early. If you are diabetic, you may get a false positive result for sugar in your urine with certain brands of urine tests. Check with your doctor. Do not treat diarrhea with dyyc-bxk-eelkitl products. Contact your doctor if you have diarrhea that lasts more than 2 days or if the diarrhea is severe and watery. Mupirocin Topical ointment What is this medicine? MUPIROCIN (myoo PEER oh sin) is an antibiotic. It is used on the skin to treat skin infections. How should I use this medicine? This medicine is for external use only. Follow the directions on the prescription label. Wash your hands before and after use. Before applying, wash the affected area with mild soap and water and pat dry. Apply a small amount to the affected area and rub gently. You can cover the area with a gauze dressing. Do not get this medicine in your eyes. If you do, rinse out with plenty of cool tap water. Do not use your medicine more often than directed. Finish the full course of medicine prescribed by your doctor or health personal care service provider even if you think your condition is better. Do not use over large areas of burnt skin. Talk to your mortgage coordinator regarding the use of this medicine in children. Special care may be needed. What side effects may I notice from receiving this medicine? Side effects that you should report to your doctor or health personal care service provider as soon as possible: skin rash, redness, continued swelling, burning, itching, stinging, or pain Side effects that usually do not require medical attention (report to your doctor or health personal care service provider if they continue or are bothersome): dry skin, itching What may interact with this medicine? Interactions are not expected. Do not use any other skin products on the affected area without telling your doctor or health personal care service provider. What if I miss a dose? If you miss a dose, take it as soon as you can. If it is almost time for your next dose, take only that dose. Do not take double or extra doses. Where should I keep my medicine? Keep out of the reach of children. Store at room temperature between 20 and 25 degrees C (68 and 77 degrees F). Throw away any unused medicine after the expiration date. What should I tell my health care provider before I take this medicine? They need to know if you have any of these conditions: an unusual or allergic reaction to mupirocin, polyethylene glycol (PEG), or other topical antibiotic medicine or trying to get breast-feeding What should I watch for while using this medicine? Tell your doctor or health personal care service provider if your skin condition does not begin to improve within 3 to 5 days. Fluticasone Propionate Nasal spray, solution What is this medicine? FLUTICASONE (floo TIK a sone) is a corticosteroid. It helps decrease inflammation in your nose. This medicine is used to treat the symptoms of allergies like sneezing, itching, and runny or stuffy nose. How should I use this medicine? This medicine is for use in the nose. Follow the directions on your prescription label. This medicine works best if used regularly. Do not use more often than directed. Make sure that you are using your nasal spray correctly. Ask you doctor or health care provider if you have any questions. Talk to your mortgage coordinator regarding the use of this medicine in children. While this drug may be prescribed for children as young as 4 years old for selected conditions, precautions do apply. What side effects may I notice from receiving this medicine? Side effects that you should report to your doctor or health personal care service provider as soon as possible: allergic reactions like skin rash, itching or hives, swelling of the face, lips, or tongue changes in vision flu-like symptoms white patches or sores in the mouth or nose Side effects that usually do not require medical attention (report to your doctor or health personal care service provider if they continue or are bothersome): burning or irritation inside the nose or throat cough headache nosebleed unusual taste or smell What may interact with this medicine? ketoconazole metyrapone some medicines for HIV vaccines What if I miss a dose? If you miss a dose, use it as soon as you remember. If it is almost time for your next dose, use only that dose and continue with your regular schedule. Do not use double or extra doses. Where should I keep my medicine? Keep out of the reach of children. Store at room temperature between 15 and 30 degrees C (59 and 86 degrees F). Throw away any unused medicine after the expiration date. What should I tell my health care provider before I take this medicine? They need to know if you have any of these conditions: infection, like tuberculosis, herpes, or fungal infection recent surgery on nose or sinuses taking corticosteroid by mouth an unusual or allergic reaction to fluticasone, steroids, other medicines, foods, dyes, or preservatives or trying to get breast-feeding What should I watch for while using this medicine? Visit your doctor or health personal care service provider for regular checks on your progress. Some symptoms may improve within 12 hours after starting use. Check with your doctor or health personal care service provider if there is no improvement in your condition after 3 weeks of use. Do not come in contact with people who have chickenpox or the measles while you are taking this medicine. If you do, call your doctor right away. You have been given the following additional information: Sinusitis, No Abx Dental Cavity Dental Pain Hydrocodone Bitartrate, Acetaminophen Oral tablet Amoxicillin Trihydrate Oral tablet Mupirocin Topical ointment Fluticasone Propionate Nasal spray, solution (Electronically signed by King Alcazar Dr. 11/14/2016 13:18)
--- NOTE | 2016-11-14 20:28 | ED MED RECONCILIATION SUMMARY ---
Patient: SANDRA MAGAÑAHARRISON Judson Medication Reconciliation Report [facility] VisitID: [id number] [place] [address] 21y, F Registration Date/Time: 11/14/2016 Weight: 56.6 kg Height/Length: 65 in. BMI: 20.8 ALLERGIES: None The patient's Home Medications are listed below: NONE. The source(s) of the original Home Medication information: patient The following Medications were given to the patient in the Emergency Department: None. The following Medications were prescribed to the patient: Hydrocodone/APAP 5mg / 325mg: take 1 orally as needed for pain. Dispense fifteen (15). No refill. -- King Alcazar Dr. Amoxicillin 500 mg capsules: take 1 orally every 8 hours for 7 days -- King Alcazar Dr. Mupirocin 2% ointment: apply small amount to affected area three times daily until symptoms better. Dispense twenty-two (22) grams. No refills. -- King Alcazar Dr. Flonasslava nasal spray: 2 sprays to each nostril daily. Dispense one (1) unit. No refills. Substitution is permissible -- King Alcazar Dr.
== END 2016-11-14 13:20 | disposition home or self-care (01) ==
LOC: ED SRH 12:23
DX: K02.9 Dental caries, unspecified (principal); J01.00 Acute maxillary sinusitis, unspecified; F17.200 Nicotine dependence, unspecified, uncomplicated